=== PATIENT | male | born 1995 | race Caucasian/White ===

== ENCOUNTER 2024-05-27 11:42 | Emergency (ER) | payer BC, MEDICAID ==
[~2024-05-27] VITALS: Ht 172.7 cm; Wt 73.0 kg
[2024-05-27 11:59] VITALS: O2SAT 99
[2024-05-27 13:48] LABS: CHLORIDE 105 mEq/L (98-107); POTASSIUM 3.9 mEq/L (3.5-5.1); SODIUM 139 mEq/L (136-145)
[2024-05-27 13:49] LABS: CALCIUM 9.1 mg/dL (8.7-10.4); CARBON DIOXIDE 27 mEq/L (21-32)
[2024-05-27 13:54] LABS: CREATININE 0.9 mg/dL (0.6-1.3); GLUCOSE 86 mg/dL (70-105); UREA NITROGEN BLOOD 16 mg/dL (9-23)
[2024-05-27] MEDS: KETOROLAC 30MG/ML VIAL IV STA (13:54)
[2024-05-27 13:55] LABS: HEMATOCRIT. 36.9 % (42.0-52.0); HEMOGLOBIN. 12.1 g/dL (14.0-18.0); MEAN CORPUSCULAR HEMOGLOBIN 29.5 pg (28.0-32.0); MEAN CORPUSCULAR HGB CONC 32.9 g/dL (31.0-37.0); MEAN CORPUSCULAR VOLUME 89.6 fL (80.0-94.0); MEAN PLATELET VOLUME 7.3 fl (7.4-10.4); PLATELET 261 x1000/uL (130-400); PROTHROMBIN TIME 11.4 sec (9.6-11.0); RED BLOOD CELL COUNT 4.11 mill/uL (4.7-6.1); RED CELL DISTRIBUTION WIDTH 13.1 % (11.6-14.6); WHITE BLOOD COUNT 17.7 x1000/uL (4.5-11.0)
[2024-05-27] MEDS: PIPERACILLIN/TAZO 3.375G/50ML 50 ML IV ONE (13:55)
[2024-05-27] MEDS: SODIUM CHLORIDE 0.9% (SEPSIS BOLUS) IV ONE (13:55)
[2024-05-27] MEDS: VANCOMYCIN 1G PREMIX 200 ML IV ONE (13:55)
[2024-05-27 14:06] LABS: DIFFERENTIAL COMMENT 1
[2024-05-27] MEDS: IOHEXOL-300 100 ML BOTTLE ONE (15:30)
[2024-05-27] MEDS: CLINDAMYCIN 600MG PREMIX 50 ML IV NR (16:47)
[2024-05-27 18:00] VITALS: TEMP 36.61404
[2024-05-27 18:47] LABS: PLATELET ESTIMATE NORMAL
[2024-05-27] MEDS ORDERED: PIPERACILLIN/TAZO 3.375G/50ML 50 ML IV SCH (22:00)
[2024-05-27 22:08] VITALS: BP 107/55; PULSE 86; RESP 16; O2SAT 99
[2024-05-27] MEDS ORDERED: VANCOMYCIN 1.25GM PMX (XELLIA) 250 ML IV SCH (23:00)
== END 2024-05-27 22:25 | disposition left against medical advice (07) ==
LOC: ER 12:27 → EDBD 12:27 → EDBEDREQ 13:09 → EDBEDREQTM 21:47 → EDBEDREQ 21:47 → EDBEDREQSVC 21:47 → CANBEDREQ 22:20 → ER 22:25
DX: M65.341 Trigger finger, right ring finger (principal); L03.113 Cellulitis of right upper limb; Z79.899 Other long term (current) drug therapy
CPT/HCPCS: 99291; 73201; 96365; 96367; 96366; 96375; 80048; 83605; 85025; 85610; 87040; 36415; 84145; 93005; 96368; J1885; Q9967; J2543; J3370; J3490; J7030